=== PATIENT | male | born 1955 | race Caucasian/White ===

== ENCOUNTER → 2024-01-04 17:12 | Outpatient (REF) | payer MEDICARE, OTHER, SELFPAY | LOC: PAVMRI 17:12 | PROVIDERS: ATTENDING PHYSICIAN Physician Assistant Surgical; FAMILY PHYSICIAN Internal Medicine | DX: M25.512 Pain in left shoulder (principal); M23.91 Unspecified internal derangement of right knee | CPT/HCPCS: 73221; 73721 ==

== ENCOUNTER → 2024-01-31 14:57 | Outpatient (REF) | payer MEDICARE, OTHER, SELFPAY ==
[2024-01-31 16:12] LABS: ALT (SGPT) 29 U/L (0-50); AST (SGOT) 28 U/L (17-59); Albumin 4.5 g/dl (3.5-5.0); Alkaline Phosphatase 79 U/L (38-126); Blood Urea Nitrogen 28 mg/dl (9-20); Calcium 11.5 mg/dl (8.4-10.2); Carbon Dioxide 31 mmol/L (22-30); Chloride 100 mmol/L (98-107); Direct Bilirubin 0.4 mg/dl (0.0-0.4); Glucose 102 mg/dl (70-99); Potassium 3.5 mmol/L (3.5-5.1); Sodium 142 mmol/L (135-145); Total Protein 7.8 g/dl (6.3-8.2); eGFR 54.75
== END ==
LOC: REG 14:57
PROVIDERS: ATTENDING PHYSICIAN Specialist; FAMILY PHYSICIAN Internal Medicine; OTHER PHYSICIAN Internal Medicine Critical Care Medicine
DX: D86.9 Sarcoidosis, unspecified (principal); I10 Essential (primary) hypertension
CPT/HCPCS: 36415; 80053; 82248

== ENCOUNTER → 2024-02-07 08:10 | Outpatient (REF) | payer MEDICARE, OTHER, SELFPAY ==
[2024-02-07 09:55] LABS: Blood Urea Nitrogen 26 mg/dl (9-20); Carbon Dioxide 27 mmol/L (22-30); Chloride 102 mmol/L (98-107); Glucose 111 mg/dl (70-99); Potassium 3.5 mmol/L (3.5-5.1); Sodium 140 mmol/L (135-145); eGFR 59.84
== END ==
LOC: REG 08:10
PROVIDERS: ATTENDING PHYSICIAN Specialist; FAMILY PHYSICIAN Internal Medicine
DX: N18.9 Chronic kidney disease, unspecified (principal); D86.9 Sarcoidosis, unspecified; I10 Essential (primary) hypertension; N20.0 Calculus of kidney
CPT/HCPCS: 36415; 80048

== ENCOUNTER 2024-02-15 14:57 | Outpatient (RCR) | payer MEDICARE, OTHER, SELFPAY | END 2024-02-15 23:59 | disposition home or self-care (01) | LOC: RPT 14:57 | PROVIDERS: ATTENDING PHYSICIAN Specialist; FAMILY PHYSICIAN Internal Medicine | DX: S46.012D Strain of muscle(s) and tendon(s) of the rotator cuff of left shoulder, subsequent encounter (principal); S76.111D Strain of right quadriceps muscle, fascia and tendon, subsequent encounter; Z73.6 Limitation of activities due to disability; M25.512 Pain in left shoulder; M25.561 Pain in right knee | CPT/HCPCS: 97010; 97110; 97112; 97140; 97162 ==

== ENCOUNTER 2024-03-05 15:09 | Outpatient (RCR) | payer MEDICARE, OTHER, SELFPAY | END 2024-03-05 23:59 | disposition home or self-care (01) | LOC: RPT 15:09 | PROVIDERS: ATTENDING PHYSICIAN Specialist; FAMILY PHYSICIAN Internal Medicine | DX: S46.012D Strain of muscle(s) and tendon(s) of the rotator cuff of left shoulder, subsequent encounter (principal); S76.111D Strain of right quadriceps muscle, fascia and tendon, subsequent encounter; Z73.6 Limitation of activities due to disability | CPT/HCPCS: 97010; 97110; 97112 ==

== ENCOUNTER 2024-04-01 16:15 | Outpatient (RCR) | payer MEDICARE, OTHER, SELFPAY | END 2024-04-01 23:59 | disposition home or self-care (01) | LOC: RPT 16:15 | PROVIDERS: ATTENDING PHYSICIAN Specialist; FAMILY PHYSICIAN Internal Medicine | DX: S46.012D Strain of muscle(s) and tendon(s) of the rotator cuff of left shoulder, subsequent encounter (principal); S76.111D Strain of right quadriceps muscle, fascia and tendon, subsequent encounter; Z73.6 Limitation of activities due to disability | CPT/HCPCS: 97010; 97110; 97112 ==

== ENCOUNTER → 2024-05-23 08:04 | Outpatient (REF) | payer MEDICARE, OTHER, SELFPAY | LOC: RCS 08:04 | PROVIDERS: ATTENDING PHYSICIAN Internal Medicine; FAMILY PHYSICIAN Internal Medicine | DX: D86.0 Sarcoidosis of lung (principal) | CPT/HCPCS: 93306 ==

== ENCOUNTER → 2024-07-23 16:37 | Outpatient (REF) | payer MEDICARE, OTHER, SELFPAY ==
[2024-07-23 18:12] LABS: ALT (SGPT) 30 U/L (0-50); AST (SGOT) 28 U/L (17-59); Albumin 4.6 g/dl (3.5-5.0); Alkaline Phosphatase 68 U/L (38-126); Blood Urea Nitrogen 25 mg/dl (9-20); Calcium 9.9 mg/dl (8.4-10.2); Direct Bilirubin 0.2 mg/dl (0.0-0.4); Total Bilirubin 0.8 mg/dl (0.2-1.3); Total Protein 7.6 g/dl (6.3-8.2)
== END ==
LOC: REG 16:37
PROVIDERS: ATTENDING PHYSICIAN Internal Medicine Critical Care Medicine; FAMILY PHYSICIAN Internal Medicine
DX: D86.9 Sarcoidosis, unspecified (principal)
CPT/HCPCS: 36415; 80076; 82310; 82565; 84520

== ENCOUNTER → 2024-12-08 06:52 | Outpatient (REF) | payer MEDICARE, OTHER, SELFPAY ==
[2024-12-08 08:10] LABS: Urine Albumin 1+ (Neg - Trace); Urine Bilirubin Negative (Negative); Urine Character Clear (Clear); Urine Color Yellow; Urine Glucose Negative (Negative); Urine Ketone Negative (Negative); Urine Leukocyte Negative (Negative); Urine Nitrite Negative (Negative); Urine Occult Blood Negative (Negative); Urine Urobilinogen 1+ (Neg - 1+)
[2024-12-08 08:15] LABS: % Basophils 0.7 % (0-2); % Eosinophils 5.5 % (0-6); % Immature Granulocytes 0.5 % (0-0.5); % Lymphocytes 20.3 % (20.5-51.1); % Monocytes 12.2 % (1.7-9.3); % Neutrophils 60.8 % (42.2-75.2); Absolute Eosinophils 0.3 10^3/uL (0-0.7); Absolute Lymphocytes 1.2 10^3/uL (1.2-3.4); Absolute Monocytes 0.7 10^3/uL (0.1-0.6); Absolute Neutrophils 3.6 10^3/uL (1.4-6.5); Hematocrit 40.3 % (39.0-52.0); Hemoglobin 14.2 g/dL (13.0-18.0); Mean Corp Hgb Conc. 35.2 g/dL (33.0-37.0); Mean Corpuscular Hgb 30.7 pg (27.0-31.0); Mean Platelet Volume 10.3 fL (7.4-10.4); Nucleated Red Blood Cells % 0 % (-); Platelet Count 194 10^3/uL (130-400); Red Blood Cell Count 4.63 10^6/uL (4.70-6.10); Red Cell Dist. Width 13.3 % (11.5-14.5)
[2024-12-08 08:22] LABS: Urine Red Blood Cell 0-2 /HPF (0-2); Urine Squamous Cell 0-2 /LPF (Few); Urine White Cell 0-2 /HPF (0-5)
[2024-12-08 08:27] LABS: ALT (SGPT) 24 U/L (0-50); AST (SGOT) 23 U/L (17-59); Albumin 4.2 g/dl (3.5-5.0); Alkaline Phosphatase 78 U/L (38-126); Blood Urea Nitrogen 29 mg/dl (9-20); Calcium 9.9 mg/dl (8.4-10.2); Carbon Dioxide 32 mmol/L (22-30); Chloride 102 mmol/L (98-107); Direct Bilirubin 0.2 mg/dl (0.0-0.4); Glucose 108 mg/dl (70-99); HDL Cholesterol 60 mg/dl; LDL Cholesterol, Calculated 131 mg/dl; Potassium 3.7 mmol/L (3.5-5.1); Sodium 140 mmol/L (135-145); Total Bilirubin 1.2 mg/dl (0.2-1.3); Total Cholesterol 206 mg/dl (50-199); Total Protein 7.2 g/dl (6.3-8.2); Triglyceride 77 mg/dl (10-149); Very Low Density Lipoprotein 15 mg/dl (0-30); eGFR 54.41
[2024-12-08 08:28] LABS: Calcium 10.1 mg/dl (8.4-10.2)
[2024-12-08 08:57] LABS: TSH 6.89 uIU/ml (0.47-4.68)
[2024-12-08 09:36] LABS: Glycohemoglobin (HgbA1c) 5.4 % (4.0-5.6)
[2024-12-09 06:35] LABS: % Free Testosterone 1.5 % (1.6-2.9); Free Testosterone 70 pg/mL (47-244); Sex Hormone Binding Globulin 46 nmol/L (19-76); Total Testosterone 455 ng/dL (300-720)
[2024-12-10 08:50] LABS: Intact PTH 20.1 pg/ml (13.6-85.8)
== END ==
LOC: REG 06:52
PROVIDERS: ATTENDING PHYSICIAN Internal Medicine Critical Care Medicine; FAMILY PHYSICIAN Internal Medicine
DX: D86.9 Sarcoidosis, unspecified (principal); N52.9 Male erectile dysfunction, unspecified; E66.9 Obesity, unspecified; N20.0 Calculus of kidney; E83.52 Hypercalcemia; I10 Essential (primary) hypertension; N18.31 Chronic kidney disease, stage 3a; Z12.5 Encounter for screening for malignant neoplasm of prostate; R73.01 Impaired fasting glucose
CPT/HCPCS: 36415; 80053; 80061; 81003; 81015; 82248; 83036; 83970; 84270; 84402; 84403; 84443; 85025

== ENCOUNTER → 2025-07-07 15:31 | Outpatient (REF) | payer MEDICARE, OTHER, SELFPAY | LOC: RAD 15:31 | PROVIDERS: ATTENDING PHYSICIAN Specialist; FAMILY PHYSICIAN Internal Medicine | DX: I10 Essential (primary) hypertension (principal) | CPT/HCPCS: 74018 ==

== ENCOUNTER → 2025-07-22 07:11 | Outpatient (REF) | payer MEDICARE, OTHER, SELFPAY ==
[2025-07-22 08:06] LABS: Hematocrit 41.7 % (39.0-52.0); Hemoglobin 14.4 g/dL (13.0-18.0); Mean Corp Hgb Conc. 34.5 g/dL (33.0-37.0); Mean Corpuscular Volume 86.7 fL (80.0-94.0); Nucleated Red Blood Cells % 0 % (-); Platelet Count 202 10^3/uL (130-400); Red Cell Dist. Width 13.1 % (11.5-14.5)
[2025-07-22 08:56] LABS: ALT (SGPT) 31 U/L (0-50); AST (SGOT) 25 U/L (17-59); Albumin 4.5 g/dl (3.5-5.0); Alkaline Phosphatase 67 U/L (38-126); Blood Urea Nitrogen 21 mg/dl (9-20); Total Protein 7.6 g/dl (6.3-8.2)
== END ==
LOC: REG 07:11
PROVIDERS: ATTENDING PHYSICIAN Internal Medicine Critical Care Medicine; FAMILY PHYSICIAN Internal Medicine
DX: D86.9 Sarcoidosis, unspecified (principal)
CPT/HCPCS: 36415; 80076; 82565; 84520; 85025

== ENCOUNTER 2025-08-18 06:23 | Day surgery (SDC) | payer MEDICARE, OTHER, SELFPAY | END 2025-08-18 09:33 | disposition home or self-care (01) | LOC: GI 06:23 | PROVIDERS: ATTENDING PHYSICIAN Student in an Organized Health Care Education/Training Program | DX: Z12.11 Encounter for screening for malignant neoplasm of colon (principal); K64.8 Other hemorrhoids; K57.30 Diverticulosis of large intestine without perforation or abscess without bleeding; K62.1 Rectal polyp; D12.3 Benign neoplasm of transverse colon; D12.2 Benign neoplasm of ascending colon; D12.1 Benign neoplasm of appendix; K63.5 Polyp of colon | CPT/HCPCS: 45385; 45380; 88305 ==